=== PATIENT | male | born 2000 | race African-American/Black ===

== ENCOUNTER 2021-01-22 06:46 | Day surgery (SDC) | payer BC, MEDICARE ==
[2021-01-18 14:11] VITALS: BMI 22.9
[~2021-01-22 06:46] MED LIST: DEXAMETHASONE SOD PHOSPHATE 4 MG/ML 1 ML VIAL IV ONE; LACTATED RINGERS 1,000 ML IV SCH; MIDAZOLAM 2 MG/2 ML VIAL IV PRN; ONDANSETRON 4 MG/2 ML VIAL IVP ONE; metroNIDAZOLE-NS PMX 500 MG in SALINE 1 100ML.BAG IVPB PRN
[2021-01-22] MEDS ORDERED: HYDROmorphone 0.5 MG/0.5 ML SYRINGE IVP PRN (07:00)
[2021-01-22] MEDS ORDERED: LIDOCAINE 1% (10MG/ML) FOR IV START INTRADERMA ONE (07:15)
[2021-01-22] MEDS ORDERED: fentaNYL (PF) 50 MCG/ML 2 ML AMP ONE (07:30)
[2021-01-22] MEDS ORDERED: PROPOFOL 10 MG/ML 20 ML VIAL IV ONE (07:30)
[2021-01-22] MEDS ORDERED: SUCCINYLCHOLINE CHLORIDE 100 MG/5 ML SYR IV ONE (07:30)
[2021-01-22] MEDS ORDERED: LIDOCAINE 1% INJ 10MG/ML (20 ML MDV) ONE (07:30)
[2021-01-22] MEDS ORDERED: MIDAZOLAM 2 MG/2 ML VIAL ONE (07:30)
[2021-01-22] MEDS ORDERED: GLYCOPYRROLATE 0.2 MG/ML 2 ML VIAL ONE (07:30)
--- NOTE | 2021-01-22 09:14 | P.GSCN ---
History of Present Illness Consult date: 01/22/21 Reason for Consult: -4 BWS -Prophy -Initial Exam #1 O resin -#2 O resin -#12 DO -#13 MOD -#14 MO -#21 DO all resins Filtek bulk (or flowable for #1,2), shade A2, glass ionomer base. -#13 Is deep. -#7,8,9,10 Polished B surfaces to reduce enamel stain. Past Medical History Additional Past Medical History / Comment(s): autistic History of Any Multi-Drug Resistant Organisms: None Reported Past Surgical History: Adenoidectomy Past Anesthesia/Blood Transfusion Reactions: No Reported Reaction Additional Psychological History / Comment(s): autism spectrum Smoking Status: Never smoker Past Alcohol Use History: None Reported Past Drug Use History: None Reported Medications and Allergies Home Medications Medication Instructions Recorded Confirmed Type Cholecalciferol (Vitamin D3) 125 mcg PO DAILY 01/14/21 01/14/21 History [Vitamin D3 (5000 Iu)] Citicoline Sodium [Cerenx] 2,000 mg PO DAILY 01/14/21 01/14/21 History L.acidoph,Paracasei, B.lactis 1 each PO DAILY 01/14/21 01/14/21 History [Probiotic] Loratadine [Claritin] 10 mg PO DAILY 01/14/21 01/14/21 History Melatonin 1 - 3 mg PO HS PRN 01/14/21 01/14/21 History Phosphatidylserine 300 mg PO DAILY 01/14/21 History Vit C/Ascorb Sod/Multivit-Min 500 mg PO DAILY 01/14/21 01/14/21 History [Emergen-C 500 mg Chewable Tab] Allergies Allergy/AdvReac Type Severity Reaction Status Date / Time No Known Allergies Allergy Verified 01/18/21 14:05 Surgical - Exam Vital Signs Temp Pulse Resp BP Pulse Ox 97.2 F L 52 L 20 132/75 100 01/22/21 06:52 01/22/21 06:52 01/22/21 06:52 01/22/21 06:52 01/22/21 06:52
[2021-01-22 09:43] VITALS: RESP 16; TEMP 96.8
[2021-01-22 10:25] VITALS: BP 122/76
[2021-01-22 10:36] VITALS: PULSE 45
== END 2021-01-22 11:00 | disposition home or self-care (01) ==
LOC: OR 06:46
PROVIDERS: ATTEND Dentist
DX: K02.9 Dental caries, unspecified (principal); F84.0 Autistic disorder; Z79.899 Other long term (current) drug therapy; D64.9 Anemia, unspecified; L20.9 Atopic dermatitis, unspecified; Z82.3 Family history of stroke; Z83.3 Family history of diabetes mellitus; Z81.8 Family history of other mental and behavioral disorders; Z82.49 Family history of ischemic heart disease and other diseases of the circulatory system
CPT/HCPCS: 41899; J2250; J1100; J2405; J2001; J3010; J0330; J2704

== ENCOUNTER 2023-09-11 08:18 | Day surgery (SDC) | payer BC, MEDICARE ==
[2023-09-06 15:20] VITALS: BMI 21.4
[~2023-09-11 08:18] MED LIST changes: -DEXAMETHASONE SOD PHOSPHATE 4 MG/ML 1 ML VIAL IV ONE; +HYDROmorphone 0.5 MG/0.5 ML SYRINGE IVP PRN; -LACTATED RINGERS 1,000 ML IV SCH; -MIDAZOLAM 2 MG/2 ML VIAL IV PRN; -ONDANSETRON 4 MG/2 ML VIAL IVP ONE; -metroNIDAZOLE-NS PMX 500 MG in SALINE 1 100ML.BAG IVPB PRN
[2023-09-11] MEDS: LACTATED RINGERS 1,000 ML IV SCH (08:23)
[2023-09-11 08:36] VITALS: TEMP 97.8
[2023-09-11] MEDS ORDERED: PROPOFOL 10 MG/ML 20 ML VIAL IV ONE (08:56)
[2023-09-11] MEDS ORDERED: MIDAZOLAM 2 MG/2 ML VIAL ONE (08:56)
[2023-09-11] MEDS: IV FLUID CONTINUATION 800 ML IV ONE (09:40)
--- NOTE | 2023-09-11 09:53 | CT ---
EXAMINATION TYPE: CT brain wo con CT DLP: 1275.00 mGycm, Automated exposure control for dose reduction was used. DATE OF EXAM: 09/11/2023 9:35 AM COMPARISON: None. CLINICAL INDICATION:Male, 23 years old with history of R41.82 ALTERED MENTAL STATUS, altered mental s tatus TECHNIQUE: Brain: Axial CT images of the brain were obtained with coronal and sagittal reformats created and rev iewed. Contrast used: None. Oral contrast used: None. FINDINGS: Brain: Extra-axial spaces: No abnormal extra-axial fluid collections. Ventricular system: Within normal limits Cerebral parenchyma: No acute intraparenchymal hemorrhage or mass effect. The templeton-white junction is well differentiated. Cerebellum: Unremarkable. Mass effect: No evidence of midline shift. Intracranial vasculature: unremarkable Soft tissues: Normal. Calvarium/osseous structures: No depressed skull fracture. Paranasal sinuses and mastoid air cells: Mild scattered paranasal sinus disease. Visualized orbits: Orbital contents are intact. IMPRESSION: No acute intracranial process.
[2023-09-11 10:13] VITALS: PULSE 47; RESP 16
[2023-09-11 10:14] VITALS: BP 122/70
== END 2023-09-11 10:07 | disposition home or self-care (01) ==
LOC: RADCTMAIN 08:18 → EDSTATUS 09:00 → RADCTMAIN 10:07
PROVIDERS: ATTEND Family Medicine
DX: R41.82 Altered mental status, unspecified (principal); F84.0 Autistic disorder; Z79.899 Other long term (current) drug therapy
CPT/HCPCS: 70450; J2250; J2704

== ENCOUNTER → 2023-10-12 | Outpatient (CLI) | payer BC, MEDICARE, OTHER ==
[2023-10-12 16:52] VITALS: BP 128/75; PULSE 58; RESP 16; TEMP 97.7
--- NOTE | 2023-10-12 17:08 | P.SLEEP ---
History of Present Illness DATE: 10/12/2023 CONSULTATION/NEW PATIENT EVALUATION HISTORY OF PRESENT ILLNESS/SLEEP-WAKE EVALUATION: 23-year-old gentleman had b een evaluated in the sleep center for possible obstructive sleep apnea hypopnea syndrome. Patient has autism. History was taking with help of his mother. SLEEP SCHEDULE: Usually sleep schedule from 11:30 PM to 7 AM on weekdays and to 11:30 AM on weekend. FALLING ASLEEP: No problems with falling asleep. DURING SLEEP: Patient has loud snoring and witnessed episodes of stop breathing during the sleep by his mother. Positive history of grinding teeth. Patient usually sleeps on the side position. Patient wakes up from sleep up to 3 times with nocturia no history of hypnogogical hallucinations, sleep paralysis, or cataplexy. DURING THE DAY/WAKE STATE: During the day patient has difficulties to pay attention, falling asleep during the day, has problem with memory and anxiety. Pe Ell sleepiness scale is significantly increased to 15. Patient takes up to 3 naps during the day 8 various time. PAST MEDICAL HISTORY: Autism, iron deficiency anemia. PAST SURGICAL HISTORY: Adenoidectomy. MEDICATIONS: Supplements, no prescribed medications. SOCIAL HISTORY: Negative for smoking or using alcohol . FAMILY HISTORY: Hypertension, stroke, cyanosis problems. REVIEW OF SYSTEMS: Loud snoring, multiple awakenings from sleep, sleepiness during the day. No fevers. No double vision. No recent chest pain. No shortness of breath. No abdominal pain. No bleeding episodes. No blood in urine. No seizure episodes. PHYSICAL EXAMINATION: GENERAL: A pleasant patient without any distress. VITAL SIGNS: See below. HEENT: PERRLA, EOMI. Evaluation of oropharynx showed tongue protrudes midline, low position of soft palate Mallampati 4. NECK: Supple. No JVD. Thyroid is not palpable. 16 inches in circumference. LUNGS: Clear to percussion and to auscultation. Good air exchange. No wheezing or rhonchi. HEART: S1, S2 regular. No murmurs, gallops or rubs. ABDOMEN: Soft and nontender. Bowel sounds are present. No organomegaly appreciated. EXTREMITIES: No clubbing or cyanosis. Constant movements of legs, possibly restless leg syndrome. [employer]: Awake, alert, and oriented x3. Cranial nerves 2 to 7 intact. There is no fasciculation or atrophy noted. No focal deficits observed. ASSESSMENT: 1. Loud snoring, witnessed episodes. Bracing during the sleep, extremely low position of soft palate Mallampati 4, sleepiness with Pe Ell Sleepiness Scale 15. Obstructive sleep apnea hypopnea syndrome. 2. Autism. 3. Restless legs. 4. History of iron deficiency anemia. 5 status post adenoidectomy. PLAN: 1. Polysomnography for evaluation of patient's breathing during sleep. 2. Following plan after reading sleep study. 3. Preferable position during sleep on the side. 4. Patient does not drive. 5. Sleep hygiene with regular sleep time for at least 7.5-8 hours. 6. Watching weight. Thank you very much for referring this patient for consultation. Sincerely, Jesu Rain MD, PhD, FAASM. Diplomat of [place] [employer], Sleep Medicine Board by [place] [employer] [place] [employer] [facility] Past Medical History Additional Past Medical History / Comment(s): Hx Anemia. Autistic, limited language skills, almost completely non-verbal. "Blood pressure up a little with last Dr visit but was worked up about being there". Had one Sleep Study, due to have a more in depth Sleep Study. History of Any Multi-Drug Resistant Organisms: None Reported Past Surgical History: Adenoidectomy Additional Past Surgical History / Comment(s): Partial adenoiectomy, dental cleaning under anesthesia. Past Anesthesia/Blood Transfusion Reactions: No Reported Reaction Additional Past Anesthesia/Blood Transfusion Reaction / Comment(s): "Spit up a little X1 after dental work". Additional Psychological History / Comment(s): Autism spectrum. Smoking Status: Never smoker Past Alcohol Use History: None Reported Past Drug Use History: None Reported - Past Family History Mother Family Medical History: No Reported History Medications and Allergies Home Medications Medication Instructions Recorded Confirmed Type Multivitamins, Thera [Multivitamin 1 tab PO DAILY 09/06/23 09/11/23 History (formulary)] Dawson (Unknown Dose) 1 tab PO DAILY 09/06/23 09/11/23 History Allergies Allergy/AdvReac Type Severity Reaction Status Date / Time No Known Allergies Allergy Verified 09/11/23 08:18 Physical Exam Vitals: Vital Signs Temp Pulse Resp BP Pulse Ox 10/12/23 16:38 97.7 F 58 L 16 128/75 100 Intake and Output 10/12/23 10/12/23 10/12/23 06:59 14:59 22:59 Other: Weight 78.925 kg Sleep Note - Sleep Data ESS Total: 15 - Sleep Note Sleep Note: Temperature: 97.7 F Pulse Rate: 58 Respiratory Rate: 16 Blood Pressure: 128/75 SpO2: 100 Height: 6 ft 1.5 in Weight: 78.925 kg BMI: Neck Circumference: 16
== END ==
LOC: 3 N SLEEP 15:56
PROVIDERS: ATTEND Internal Medicine
DX: G47.33 Obstructive sleep apnea (adult) (pediatric) (principal); G47.10 Hypersomnia, unspecified; F84.0 Autistic disorder; G25.81 Restless legs syndrome; Z86.2 Personal history of diseases of the blood and blood-forming organs and certain disorders involving the immune mechanism; Z98.890 Other specified postprocedural states; Z90.89 Acquired absence of other organs
CPT/HCPCS: 99211